=== PATIENT | male | born 1950 | race Two or more races ===

== ENCOUNTER 2020-10-25 05:00 | Day surgery (SDC) | payer OTHER ==
[~2020-10-25 05:00] MED LIST: AMBIEN10 MG PO; CIPRO750 MG PO; Colace 100MG PO; NEURONTIN PO; NORCO 10/325 TA1 TAB PO
[2020-10-25] MEDS ORDERED: DIAZEPAM5 MG PO (13:16)
[2020-10-25] MEDS ORDERED: PERCOCET 5-3251 EACH PO (13:16)
[2020-10-25] MEDS ORDERED: COLACE100 MG PO (13:16)
== END 2020-10-26 10:00 | disposition home or self-care (01) ==
LOC: CIR.AMB 05:00 → O/R 14:49 → CIR.AMB 14:49 → O/R 10-26 14:15
PROVIDERS: ATTEND Orthopaedic Surgery Orthopaedic Surgery of the Spine
DX: M50.021 Cervical disc disorder at C4-C5 level with myelopathy (principal); M48.02 Spinal stenosis, cervical region; Z20.822 Contact with and (suspected) exposure to COVID-19
CPT/HCPCS: 22551; 20930; 20939; 22552 ×2; 22846; 22853 ×3; C1776